=== PATIENT | male | born 1965 | race Caucasian/White ===

== ENCOUNTER → 2022-05-25 | Outpatient (CLI) | payer BC ==
[~2022-05-25] MED LIST: BACTRIM DS TAB1 EACH PO; BENADRYL ITCH28.3 G1 TP; ECOTRIN81 MG PO; HABITROL 14 MG P1 EA TOP; ZOCOR40 MG PO
== END ==
LOC: KOH-I 05-18 14:00
DX: R22.1 Localized swelling, mass and lump, neck (principal); R10.13 Epigastric pain
CPT/HCPCS: 74176; 76536